=== PATIENT | male | born 1985 ===

== ENCOUNTER 2018-01-18 21:30 | Emergency (ER) | payer OTHER ==
[2018-01-18 21:48] VITALS: RESP 16
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
[2018-01-19 00:03] VITALS: BP 128/76; PULSE 78; TEMP 97.9; O2SAT 98
--- NOTE | 2018-01-19 09:46 | RAD ---
PROCEDURE: Radiographs of the Lumbar Spine. HISTORY: back pain COMPARISON: No prior. FINDINGS: BONES: Normal alignment. No listhesis. No fracture. DISC SPACES: Unremarkable. OTHER FINDINGS: None. IMPRESSION: Unremarkable radiographs of the lumbar spine.
--- NOTE | 2018-01-19 09:47 | RAD ---
PROCEDURE: Cervical Spine Radiographs. HISTORY: Pain. COMPARISON: None. FINDINGS: BONES: Limited evaluation of C7 vertebra. Vertebral bodies maintained in height. Normal alignment maintained. Straightening of the normal lordotic curvature indicates possible muscular spasm. DISC SPACES: Normal. SOFT TISSUES: Normal. No prevertebral soft tissue swelling. OTHER FINDINGS: None. IMPRESSION: No fracture/ dislocation. Limited evaluation of C7. Possible muscular spasm.
== END 2018-01-19 00:03 | disposition home or self-care (01) ==
LOC: H.ER 21:30
DX: S16.1XXA Strain of muscle, fascia and tendon at neck level, initial encounter (principal); S39.012A Strain of muscle, fascia and tendon of lower back, initial encounter; V43.52XA Car driver injured in collision with other type car in traffic accident, initial encounter; Y92.410 Unspecified street and highway as the place of occurrence of the external cause